=== PATIENT | female | born 1990 | race Two or more races ===

== ENCOUNTER → 2020-06-21 | Outpatient (CLI) | payer OTHER | END | disposition home or self-care (01) | LOC: LAB 14:32 | PROVIDERS: ATTEND General Practice | DX: R07.89 Other chest pain (principal) ==

== ENCOUNTER 2020-06-22 12:07 | Outpatient (CLI) | payer OTHER | END 2020-06-22 12:43 | disposition home or self-care (01) | LOC: LAB 12:07 | PROVIDERS: ATTEND General Practice | DX: R07.89 Other chest pain (principal); I11.9 Hypertensive heart disease without heart failure ==

== ENCOUNTER 2020-06-22 14:18 | Emergency (ER) | payer OTHER ==
[~2020-06-22] VITALS: Ht 165.1 cm; Wt 54.4 kg
== END 2020-06-22 20:41 | disposition home or self-care (01) ==
LOC: ER 14:18
DX: R42 Dizziness and giddiness (principal); I95.89 Other hypotension; R55 Syncope and collapse

== ENCOUNTER 2020-09-07 15:37 | Emergency (ER) | payer OTHER ==
[~2020-09-07] VITALS: Ht 165.1 cm; Wt 54.4 kg
== END 2020-09-07 21:05 | disposition home or self-care (01) ==
LOC: ER 15:37
DX: S80.02XA Contusion of left knee, initial encounter (principal); S10.83XA Contusion of other specified part of neck, initial encounter; S90.02XA Contusion of left ankle, initial encounter; S00.03XA Contusion of scalp, initial encounter; W10.8XXA Fall (on) (from) other stairs and steps, initial encounter; Y93.89 Activity, other specified; Y92.098 Other place in other non-institutional residence as the place of occurrence of the external cause; Y99.8 Other external cause status

== ENCOUNTER 2024-06-13 18:49 | Emergency (ER) | payer OTHER ==
[~2024-06-13] VITALS: Ht 167.6 cm; Wt 59.0 kg
[2024-06-13 19:13] LABS: HEMOGLOBIN 12.4 g/dL (12.0-15.00); MEAN CELL VOLUME 91.2 fL (80.00-100.00); MEAN CORPUSCULAR HEMOGLOBIN 31.5 pg (27.00-32.0); MEAN CORPUSCULAR HGB CONC 34.6 g/dl (32.0-36.0); PLATELET COUNT 210 K/uL (150-450); RED BLOOD COUNT 3.95 M/uL (4.00-6.00); RED CELL DISTRIBUTION WIDTH 12.4 % (11.5-14.5)
[2024-06-13] MEDS ORDERED: LORazepam 2 MG/ML VIAL IM ONE (19:15)
[2024-06-13] MEDS ORDERED: HALOPERIDOL LACTATE 5 MG/ML AMPUL IM ONE (19:15)
[2024-06-13] MEDS ORDERED: 0.9 % SODIUM CHLORIDE 1,000 ML IV ONE (19:15)
[2024-06-13 19:36] LABS: ALBUMIN 4.5 gm/dL (3.4-5.0); ALKALINE PHOSPHATASE 59 U/L (50-136); ALT/SGPT 24 U/L (12-78); ANION GAP 12 (10.0-20.0); AST/SGOT 21 U/L (15-37); BILIRUBIN TOTAL 0.56 mg/dL (0.3-1.2); BLOOD UREA NITROGEN 12 mg/dL (7-18); BUN CREA RATIO 13 (7.0-25.0); CALCIUM 9.8 mg/dL (8.5-10.1); CARBON DIOXIDE 23 mEq/L (21-32); CHLORIDE 106 mmol/L (98-107); GFR 72.11; GLOBULINA 4.8 G/DL (2.4-3.5); GLUCOSE FASTING 110 mg/dL (65-100); OSMOLALITY SERUM 274 MOSM/KG (275-295); POTASSIUM 3.66 mEq/L (3.5-5.1); SODIUM 137 mmol/L (136-145); TOTAL PROTEIN 9.3 gm/dL (6.4-8.2)
[2024-06-13 19:37] LABS: HCG QUANTITATIVE < 1 mUI/mL (1-3)
[2024-06-13 20:48] LABS: PH,URINE 8.5 (5.0-8.0); URINE APPEARANCE Clear; URINE BILIRRUBIN Negative (NEGATIVE); URINE BLOOD Negative; URINE COLOR Yellow; URINE GLUCOSE Negative (NEGATIVE); URINE KETONE 15 (NEGATIVE); URINE LEUKOCYTE Negative; URINE NITRATE Negative; URINE PROTEIN Negative (NEGATIVE); URINE UROBILINOGEN 0.2 E.U./dl
[2024-06-13 20:52] LABS: URINE BACTERIA 172.5 uL (0.0-1933); URINE EPITHELIAL CELLS 3.5 uL (0.0-38.8)
[2024-06-13 21:00] LABS: URINE WBC 1.5 uL (0.0-23.2)
[2024-06-13 21:01] LABS: COCAINE NEGATIVE (NEGATIVE); METHADONE NEGATIVE (NEGATIVE); OPIATES NEGATIVE (NEGATIVE); THC ( Cannabinoids) NEGATIVE (NEGATIVE)
[2024-06-13 21:05] LABS: ABG PH 7.452 (7.35-7.45); ABG PO2 74.3 mmHg (80-100); ABG pCO2 28.3 mmHg (35-45); BASE EXCESS -3.1 mmol/l; BICARBONATE 19.3 mmol/l (23-25); SaO2 95.4 %; Tco2 20.2 mmol/l
[2024-06-13 21:19] LABS: allen test SATISFACTORY; o2 21 %; puncture site RADIAL RIGHT
[2024-06-13] MEDS ORDERED: KETOROLAC TROMETHAMINE 15 MG VIAL IU ONE (22:30)
[2024-06-14] MEDS ORDERED: KETOROLAC TROMETHAMINE 30 MG VIAL IV STA (06:51)
== END 2024-06-14 11:58 | disposition home or self-care (01) ==
LOC: ER 18:49
PROVIDERS: General Practice
DX: R50.9 Fever, unspecified (principal); F41.8 Other specified anxiety disorders; J45.909 Unspecified asthma, uncomplicated; Z91.013 Allergy to seafood; I95.9 Hypotension, unspecified; Z20.822 Contact with and (suspected) exposure to COVID-19